=== PATIENT | male | born 2000 | race Caucasian/White ===

== ENCOUNTER 2022-01-01 01:04 | Emergency (ER) | payer BC ==
[~2022-01-01] VITALS: Ht 182.9 cm; Wt 65.9 kg
[2022-01-01 01:18] VITALS: TEMP 97.5
[2022-01-01 02:15] VITALS: BP 121/65; PULSE 91
== END 2022-01-01 02:15 | disposition home or self-care (01) ==
LOC: COL.ER 01:04
DX: S61.211A Laceration without foreign body of left index finger without damage to nail, initial encounter (principal); W26.0XXA Contact with knife, initial encounter; Y99.0 Civilian activity done for income or pay